=== PATIENT | female | born 2000 | race Caucasian/White ===

== ENCOUNTER 2023-11-01 20:31 | Emergency (ER) | payer MEDICAID ==
[~2023-11-01] VITALS: Ht 162.6 cm; Wt 56.7 kg
[2023-11-01 20:43] VITALS: BP 131/67; TEMP 98.1; O2SAT 98
[2023-11-01] MEDS ORDERED: ONDANSETRON 4 MG TAB.RAPDIS ONE (21:21)
[2023-11-01] MEDS ORDERED: IBUPROFEN 400 MG TABLET ONE (21:21)
[2023-11-01] MEDS ORDERED: IBUPROFEN 400 MG TABLET PO ONE (21:30)
[2023-11-01] MEDS ORDERED: ONDANSETRON 4 MG TAB.RAPDIS SL ONE (21:30)
== END 2023-11-01 21:34 | disposition home or self-care (01) ==
LOC: ER 20:34
DX: S09.8XXA Other specified injuries of head, initial encounter (principal); W22.8XXA Striking against or struck by other objects, initial encounter; Y93.89 Activity, other specified; Y92.89 Other specified places as the place of occurrence of the external cause; Y99.8 Other external cause status
CPT/HCPCS: 99283; Q0162

== ENCOUNTER 2025-03-15 20:52 | Emergency (ER) | payer MEDICAID ==
[~2025-03-15] VITALS: Ht 154.9 cm; Wt 56.7 kg
[2025-03-15] MEDS ORDERED: KETOROLAC TROMETHAMINE 15 MG/ML VIAL ONE (21:41)
[2025-03-15] MEDS ORDERED: DIAZEPAM 5 MG TABLET ONE (21:41)
[2025-03-15] MEDS: DIAZEPAM 5 MG TABLET PO ONE (21:46)
[2025-03-15] MEDS: KETOROLAC TROMETHAMINE 15 MG/ML VIAL IM ONE (21:46)
[2025-03-15] MEDS ORDERED: CYCL10TA9 PO (22:24)
[2025-03-15] MEDS ORDERED: IBUP-1490 PO (22:24)
[2025-03-15 22:46] VITALS: BP 135/78; TEMP 98.6; O2SAT 98
== END 2025-03-15 22:46 | disposition home or self-care (01) ==
LOC: ER 20:54
DX: R68.84 Jaw pain (principal)
CPT/HCPCS: 99283; 96372; J1885